=== PATIENT | male | born 1960 | race Caucasian/White ===

== ENCOUNTER 2018-09-25 16:17 | Observation (INO) | payer BC ==
[2018-09-25 16:36] VITALS: BMI 29.2
--- NOTE | 2018-09-25 16:37 | PDOC ---
History of Present Illness - General Chief Complaint: Head/Neck problem Stated Complaint: numbness Time Seen by Provider: 09/25/18 16:36 History Source: Patient Exam Limitations: No Limitations - History of Present Illness Initial Comments: 58 yo h/o HTN p/w L arm numbness and tingling x 1 hour. Patient was sitting down at home and relaxing and he noted sudden pain in the L upper chest. The pain is stabbing, intermittent, radiates to L hand, unrelated with activity, a/ w nausea but no vomiting. Denies shortness of breath, dizziness, focal weakness , palpitation, blurry vision, speech change. 09/25/18 18:06 Will obtain CBC, CMP, trend trops x 2, and CXR 09/25/18 19:38 Based on his presentation and history, will admit the patient to tele obs, trend trops and ECHo in the AM. Past History - Past Medical History Allergies/Adverse Reactions: Allergies Allergy/AdvReac Type Severity Reaction Status Date / Time No Known Allergies Allergy Verified 09/25/18 16:35 Home Medications: Ambulatory Orders NK [No Known Home Medication] 09/25/18 COPD: No - Suicide/Smoking/Psychosocial Hx Smoking History: Current every day smoker Information on smoking cessation initiated: No Hx Alcohol Use: No Drug/Substance Use Hx: No Review of Systems - Review of Systems Able to Perform ROS?: Yes Is the patient limited Tuvaluan proficient: No Constitutional: Yes: Diaphoresis. No: Chills, Fever HEENTM: No: Double Vision Respiratory: No: Cough, Shortness of Breath Cardiac (ROS): Yes: Chest Pain. No: Irregular Heart Rate, Palpitations ABD/GI: Yes: Diarrhea Neurological: Yes: Numbness, Tingling. No: Headache *Physical Exam - Vital Signs Last Vital Signs Temp Pulse Resp BP Pulse Ox 97.6 F 112 H 18 140/82 100 09/25/18 16:18 09/25/18 16:18 09/25/18 16:18 09/25/18 16:18 09/25/18 16:18 - Physical Exam General Appearance: No: Apparent Distress Respiratory/Chest: positive: Lungs Clear, Normal Breath Sounds Cardiovascular: positive: S1, S2, Tachycardia. negative: Edema, JVD, Murmur Gastrointestinal/Abdominal: positive: Normal Bowel Sounds. 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
--- NOTE | 2018-09-25 17:39 | PDOC ---
Attending Attestation - Resident Resident Name: Leo Bertrand - ED Attending Attestation I have performed the following: I have examined & evaluated the patient, The case was reviewed & discussed with the resident, I agree w/resident's findings & plan, Exceptions are as noted - HPI HPI: 09/25/18 17:39 58-year-old male who is resting at home when he developed sudden left-sided chest pain that radiated to his arm and had complaints of left arm tingling. He became diaphoretic and slightly nauseous at this time. This is not occurred before. - Physicial Exam PE: 09/25/18 17:40 well nourished, well-developed 58-year-old male presents with mild intermittent left-sided chest pain radiating down his arm. head ncat eyes angelica eomi neck no JVD, no bruits noted Lungs are clear to auscultation bilaterally CVS regular rate and rhythm S1, S2 no gallops, rubs, or murmurs appreciated. Abdomen is soft, nontender. Extremities there is no lower extremity edema. Skin is warm and dry. Neuro alert and oriented 3, ambulating with ease, no gross focal neural deficits, motor strength 5 out of 5 bilaterally in his extremities. Psychiatric appropriate - Medical Decision Making 09/25/18 17:[address] Dana Mcfadden. 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 EKG is normal sinus rhythm at 90 bpm, QTC normal at 446, no ST elevations, ST depressions 09/25/18 21:37 imp chest pain plan OBS telemetry
[2018-09-25] MEDS ORDERED: ASPIRIN 81 MG CHEWABLE TABLETS PO ONE (17:47)
[2018-09-25 18:03] LABS: BASO % 0.8 % (0-2.0); EOS % 0.7 % (0-4.5); HEMATOCRIT 43.1 % (35.4-49); HEMOGLOBIN 15.2 GM/dL (11.7-16.9); LYMPH % 12.5 % (8-40); MCH 31.7 pg (25.7-33.7); MCHC 35.2 g/dl (32.0-35.9); MEAN CELL VOLUME 90.1 fl (80-96); MEAN PLT VOLUME 7.5 fl (7.5-11.1); MONO % 3.6 % (3.8-10.2); NEUT % 82.4 % (42.8-82.8); PLATELET COUNT 203 K/MM3 (134-434); RBC 4.78 M/mm3 (4.00-5.60); RDW 13.1 % (11.9-15.9)
[2018-09-25] MEDS ORDERED: ASPIRIN 81 MG CHEWABLE TABLETS ONE ×2 (18:11)
[2018-09-25 18:17] LABS: INR 1.03 (0.83-1.09); PROTHROMBIN TIME (PATIENT) 12.2 SEC (9.7-13.0)
[2018-09-25 18:20] LABS: ACTIVATED PTT 33.9 SECONDS (25.2-36.5)
[2018-09-25 19:04] LABS: ALBUMIN 4.1 g/dl (3.4-5.0); ALK PHOS 66 U/L (45-117); ANION GAP 7 MMOL/L (8-16); BILIRUBIN,TOTAL 0.8 mg/dL (0.2-1); BLOOD UREA NITROGEN 13 mg/dL (7-18); CALCIUM 8.5 mg/dL (8.5-10.1); CHLORIDE 104 mmol/L (98-107); CO2 28 mmol/L (21-32); CREATININE 0.9 mg/dL (0.55-1.3); GLUCOSE,RANDOM 177 mg/dL (74-106); MAGNESIUM 1.9 mg/dL (1.8-2.4); POTASSIUM 3.7 mmol/L (3.5-5.1); SGOT/AST 18 U/L (15-37); SGPT/ALT 37 U/L (13-61); SODIUM 140 mmol/L (136-145); TOT PROT 7.4 g/dl (6.4-8.2)
--- NOTE | 2018-09-25 20:18 | HP ---
CHIEF COMPLAINT: chest pain PCP: Dr Dana Mcfadden MD HISTORY OF PRESENT ILLNESS: 58 year old male with no pmhx presented to [facility] ed with one day history of sweating , lightheadedness, and chest pain. symptoms started today at home with sweating beofre he went to [facility] where he developed chest pain , left upper chest 9/10 , asscoaited with numbness and tingling in his left arm, pain last 2- 3 min and he never had similar pain in the past . pt reports geeling fullness in his head , dizziness , also reports N with epigastric pain but no vomiting 10 min after his lunch where he ate mushroom. pt denies any sore throat , sinus congestion , sob , dyspnea on exertion, D/C, urinary symptoms or joint or back pain . pt reprots his BP was 170 systolic at home and had elevated BP reading in [facility] past but he was never start on meds . pt has strong family history for DM and his sugar was elevated in EM. ER course was notable for: (1)trop negative (2)EKG with no St, T wave changes (3)BP 140./84, BGM 177 Recent Travel: denies PAST MEDICAL HISTORY: none PAST SURGICAL HISTORY: none Social History: Smoking:denies Alcohol:socially Drugs: denies Family History:DM his Mother with B/l LE amputation Allergies No Known Allergies Allergy (Verified 09/25/18 16:35) HOME MEDICATIONS: Home Medications Medication Instructions Recorded NK [No Known Home Medication] 09/25/18 REVIEW OF SYSTEMS CONSTITUTIONAL: Absent: fever, chills, diaphoresis, generalized weakness, malaise, loss of appetite, weight change HEENT: Absent: rhinorrhea, nasal congestion, throat pain, throat swelling, difficulty swallowing, mouth swelling, ear pain, eye pain, visual changes CARDIOVASCULAR: Absent: chest pain, syncope, palpitations, irregular heart rate, lightheadedness , peripheral edema RESPIRATORY: Absent: cough, shortness of breath, dyspnea with exertion, orthopnea, wheezing, stridor, hemoptysis GASTROINTESTINAL: Absent: abdominal pain, abdominal distension, nausea, vomiting, diarrhea, constipation, melena, hematochezia GENITOURINARY: Absent: dysuria, frequency, urgency, hesitancy, hematuria, flank pain, genital pain MUSCULOSKELETAL: Absent: myalgia, arthralgia, joint swelling, back pain, neck pain SKIN: Absent: rash, itching, pallor HEMATOLOGIC/IMMUNOLOGIC: Absent: easy bleeding, easy bruising, lymphadenopathy, frequent infections ENDOCRINE: Absent: unexplained weight gain, unexplained weight loss, heat intolerance, cold intolerance NEUROLOGIC: Absent: headache, focal weakness or left arm paresthesias, dizziness, unsteady gait, seizure, mental status changes, bladder or bowel incontinence PSYCHIATRIC: Absent: anxiety, depression, suicidal or homicidal ideation, hallucinations. PHYSICAL EXAMINATION Vital Signs - 24 hr 09/25/18 16:18 Temperature 97.6 F Pulse Rate 112 H Respiratory 18 Rate Blood Pressure 140/82 O2 Sat by Pulse 100 Oximetry (%) GENERAL: AAOx3 in NAD HEAD: NC/AT EYES: EOMI, Conjunctiva clear, sclera anicteric ENT: moist mucous membrane NECK: Supple, no JVD LUNGS: CTA B/L, no crackles no wheezing no accessory muscle use. HEART: RRR, NSR, normal s1, s2, murmur no M/R/G ABDOMEN: Soft, ND, NT, +BS 4 Q, no CVA Tenderness LOWER EXTREMITIES: no edema, +2DP pulse, NEUROLOGICAL: No focal deficit. Normal speech. gait not observed. PSYCHIATRIC: Cooperative. Good eye contact. Appropriate mood and affect. SKIN: Warm, dry, Laboratory Results - last 24 hr 09/25/18 09/25/18 09/25/18 17:50 17:50 17:50 WBC 10.0 RBC 4.78 Hgb 15.2 Hct 43.1 MCV 90.1 MCH 31.7 MCHC 35.2 RDW 13.1 Plt Count 203 MPV 7.5 Absolute Neuts (auto) 8.2 H Neutrophils % 82.4 D Lymphocytes % 12.5 D Monocytes % 3.6 L Eosinophils % 0.7 D Basophils % 0.8 Nucleated RBC % 0 PT with INR 12.20 INR 1.03 PTT (Actin FS) 33.9 Sodium 140 Potassium 3.7 Chloride 104 Carbon Dioxide 28 Anion Gap 7 L BUN 13 Creatinine 0.9 Creat Clearance w eGFR 86.67 Random Glucose 177 H Calcium 8.5 Magnesium 1.9 Total Bilirubin 0.8 AST 18 ALT 37 Alkaline Phosphatase 66 Creatine Kinase 97 Troponin I < 0.02 Total Protein 7.4 Albumin 4.1 CBC, BMP 09/25/18 17:50 09/25/18 17:50 ASSESSMENT/PLAN: 58 year old male with no PMHx presented to the hospital with chest pain associated with left arm numbness admitted to obe tele to R.O ACS # chest pain R.O ACS * Trop I negative trend x2 * EKG with no st, t wave changes repeat with trop @ 12 and 6 am * Lipid panel , cholesterol , TSH * A1c , ASA 162 in ED and then 81 daily * might benefit for Stress test as out pt * Echo in Am * consider cardiology consult in AM * # Elevated BP * 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 , 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 * if continue to be elevated will start Norvasc 2.5 and increase to control BP # Elevated sugar * A1c , 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 - New Patient This patient is new to me today: Yes Date on this admission: 09/26/18 - Critical Care Critical Care patient: No
--- NOTE | 2018-09-25 20:19 | PN ---
Teaching Attending Note Name of Resident: Kurt Valentin ATTENDING PHYSICIAN STATEMENT I saw and evaluated the patient. I reviewed the resident's note and discussed the case with the resident. I agree with the resident's findings and plan as documented. SUBJECTIVE: Patient is a 58 year old man with PMH of HTN presents with left arm numbness and tingling for 1 hour. Patient was sitting down at home and relaxing and he noted sudden pain in the left upper chest. The pain is stabbing, intermittent, radiates to left hand, unrelated with activity, associated with nausea but no vomiting. Denies shortness of breath, dizziness, focal weakness, palpitation, blurry vision or speech change. OBJECTIVE: Alert Vital Signs Period Temp Pulse Resp BP Sys/Jarvis Pulse Ox Last 24 Hr 97.6 F 112 18 140/82 100 HEENT: No Jaundice, eye redness or discharge, PERRLA, EOMI. Normocephalic, atraumatic. External ears are normal and hearing is grossly intact. No nasal discharge. Neck: Supple, nontender. No palpable adenopathy or thyromegaly. No JVD Chest: Good effort. Clear to auscultation and percussion. Heart: Regular. No S3, rub or murmur Abdomen: Not distended, soft, nontender and no HSM. No rebound or guarding. Normal bowel sounds. Ext: Peripheral pulses intact. No leg edema. Skin: Warm and dry. No petechiae, rash or ecchymosis. Neuro: Alert. Oriented x3. CN 2-12 grossly intact. Sensation grossly intact in all four extremities and DTR are symmetric. Psych: Appropriate mood and affect. Good insight. Home Medications Medication Instructions Recorded NK [No Known Home Medication] 09/25/18 Abnormal Lab Results 09/25/18 09/25/18 17:50 17:50 Absolute Neuts (auto) 8.2 H Monocytes % 3.6 L Anion Gap 7 L Random Glucose 177 H ASSESSMENT AND PLAN: 1. Chest pain associated with left arm numbness/tingling - Patient has risk factors for CAD. Initial troponin is negative and EKG shows NSR with no significant ST-T wave changes. Now painfree. Got Aspirin 162 mg in the ER. CXR shows RLL atelectasis. Will admit to telemetry to rule out ACS, get ECHO, fasting lipids, TSH and consult cardiology. Has strong family history of DM - will get HbA1c and possibly commence diabetes treatment. 2. Hypertension - Unclear why he is not on medication. Will give HCTZ 12.5 mg q am and Amlodipine 2.5 mg q pm. Nonpharmacologic measures to control hypertension like weight loss, salt restriction and exercise discussed. 3. Overweight - Counseled on the risks associated with being overweight. Will provide patient all the necessary assistance, counseling and positive reinforcement to facilitate weight loss. 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 4. DVT prophylaxis - Lovenox 40 mg SQ q 24 hours. 5. Advance directives - Full code
[2018-09-25 20:51] LABS: INR 1.03 (0.83-1.09); PROTHROMBIN TIME (PATIENT) 12.1 SEC (9.7-13.0)
[2018-09-26 04:59] VITALS: TEMP 98.2
[2018-09-26 05:53] LABS: BASO % 0.6 % (0-2.0); EOS % 2.8 % (0-4.5); HEMATOCRIT 41.5 % (35.4-49); HEMOGLOBIN 14.3 GM/dL (11.7-16.9); LYMPH % 36.4 % (8-40); MCH 30.9 pg (25.7-33.7); MCHC 34.4 g/dl (32.0-35.9); MEAN CELL VOLUME 89.6 fl (80-96); MEAN PLT VOLUME 7.9 fl (7.5-11.1); MONO % 6.6 % (3.8-10.2); NEUT % 53.6 % (42.8-82.8); PLATELET COUNT 187 K/MM3 (134-434); RBC 4.63 M/mm3 (4.00-5.60); RDW 13.2 % (11.9-15.9); WHITE BLOOD COUNT 5.9 K/mm3 (4.0-10.0)
[2018-09-26 06:24] LABS: ALBUMIN 3.6 g/dl (3.4-5.0); ALK PHOS 53 U/L (45-117); ANION GAP 6 MMOL/L (8-16); BILIRUBIN,TOTAL 0.8 mg/dL (0.2-1); BLOOD UREA NITROGEN 12 mg/dL (7-18); CALCIUM 7.7 mg/dL (8.5-10.1); CHLORIDE 107 mmol/L (98-107); CHOLESTEROL 175 mg/dL (50-200); CO2 29 mmol/L (21-32); CREATININE 0.9 mg/dL (0.55-1.3); GLUCOSE,RANDOM 137 mg/dL (74-106); HDL CHOLESTEROL 41 mg/dL (40-60); PHOSPHOROUS 3.6 mg/dL (2.5-4.9); SGOT/AST 14 U/L (15-37); SGPT/ALT 29 U/L (13-61); SODIUM 142 mmol/L (136-145); TOT PROT 6.4 g/dl (6.4-8.2); TRIGLYCERIDES 77 mg/dL (0-150)
--- NOTE | 2018-09-26 09:55 | EKG ---
Test Reason : Blood Pressure : / mmHG Vent. Rate : 077 BPM Atrial Rate : 077 BPM P-R Int : 168 ms QRS Dur : 094 ms QT Int : 380 ms P-R-T Axes : 055 009 020 degrees QTc Int : 430 ms NORMAL SINUS RHYTHM NORMAL ECG WHEN COMPARED WITH ECG OF 25-SEP-2018 16:28, NO SIGNIFICANT CHANGE WAS FOUND Confirmed by FRANC WATTERS MD ([id number]) on 09/26/2018 9:55:20 AM Referred By: EVANGELIST SEGURA Confirmed By:FRANC WATTERS MD
--- NOTE | 2018-09-26 09:59 | EKG ---
Test Reason : Blood Pressure : / mmHG Vent. Rate : 098 BPM Atrial Rate : 098 BPM P-R Int : 170 ms QRS Dur : 104 ms QT Int : 350 ms P-R-T Axes : 055 015 060 degrees QTc Int : 446 ms NORMAL SINUS RHYTHM NORMAL ECG WHEN COMPARED WITH ECG OF 26-SEP-2016 08:05, NO SIGNIFICANT CHANGE WAS FOUND Confirmed by FRANC WATTERS MD ([id number]) on 09/26/2018 9:58:55 AM Referred By: Confirmed By:FRANC WATTERS MD
[2018-09-26] MEDS ORDERED: ENOXAPARIN NA (PORCINE) 40 MG/0.4 ML DISP.SYRIN SQ SCH (10:00)
[2018-09-26] MEDS ORDERED: ASPIRIN COATED 81 MG TABLET.EC PO SCH ×2 (10:00)
[2018-09-26] MEDS: RANITIDINE HCL 150 MG TABLET (FP) PO SCH ×2 (11:08→11:10)
[2018-09-26] MEDS ORDERED: RANITIDINE HCL 150 MG TABLET (FP) ONE (11:11)
--- NOTE | 2018-09-26 13:55 | PN ---
Teaching Attending Note Name of Resident: Britney Loo ATTENDING PHYSICIAN STATEMENT I saw and evaluated the patient. I reviewed the resident's note and discussed the case with the resident. I agree with the resident's findings and plan as documented. SUBJECTIVE: Patient is a 58yo male with no pmhx presented to ED. c/o having chest pain that lasted around 1/2 an hour. Patient denies having any chest pain at this time. No fever or chills, no shortness of breath. OBJECTIVE: Initial Vital Signs Temp Pulse Resp BP Pulse Ox 97.6 F 112 H 18 140/82 100 09/25/18 16:18 09/25/18 16:18 09/25/18 16:18 09/25/18 16:18 09/25/18 16:18 Vital Signs Temperature 98.2 F 09/26/18 04:58 Pulse Rate 74 09/26/18 04:58 Respiratory Rate 18 09/26/18 09:00 Blood Pressure 107/54 L 09/26/18 04:58 O2 Sat by Pulse Oximetry (%) 97 09/26/18 09:00 GENERAL: The patient is awake, alert, and fully oriented, in no acute distress. HEAD: Normal with no signs of trauma. EYES: PERRL, extraocular movements intact, sclera anicteric, conjunctiva clear. ENT: Ears normal, oropharynx clear without exudates, moist mucous membranes. NECK: Trachea midline, full range of motion, supple. LUNGS: Breath sounds equal, clear to auscultation bilaterally, no wheezes, no crackles, no accessory muscle use. HEART: Regular rate and rhythm, S1, S2 without murmur, rub or gallop. ABDOMEN: Soft, nontender, nondistended, normoactive bowel sounds, no guarding, no rebound, no hepatosplenomegaly, no masses. EXTREMITIES: 2+ pulses, warm, well-perfused, no edema. NEUROLOGICAL: Cranial nerves II through XII grossly intact. Normal speech. PSYCH: Normal mood, normal affect. SKIN: Warm, dry, normal turgor, no rashes or lesions noted WBC 5.9 K/mm3 (4.0-10.0) 09/26/18 05:00 RBC 4.63 M/mm3 (4.00-5.60) 09/26/18 05:00 Hgb 14.3 GM/dL (11.7-16.9) 09/26/18 05:00 Hct 41.5 % (35.4-49) 09/26/18 05:00 MCV 89.6 fl (80-96) 09/26/18 05:00 MCHC 34.4 g/dl (32.0-35.9) 09/26/18 05:00 RDW 13.2 % (11.9-15.9) 09/26/18 05:00 Plt Count 187 K/MM3 (134-434) 09/26/18 05:00 MPV 7.9 fl (7.5-11.1) 09/26/18 05:00 CMP Sodium 142 mmol/L (136-145) 09/26/18 05:00 Potassium 4.0 mmol/L (3.5-5.1) 09/26/18 05:00 Chloride 107 mmol/L (98-107) 09/26/18 05:00 Carbon Dioxide 29 mmol/L (21-32) 09/26/18 05:00 Anion Gap 6 MMOL/L (8-16) L 09/26/18 05:00 BUN 12 mg/dL (7-18) 09/26/18 05:00 Creatinine 0.9 mg/dL (0.55-1.3) 09/26/18 05:00 Creat Clearance w eGFR 86.67 (>60) 09/26/18 05:00 Random Glucose 137 mg/dL (74-106) H 09/26/18 05:00 Calcium 7.7 mg/dL (8.5-10.1) L 09/26/18 05:00 Total Bilirubin 0.8 mg/dL (0.2-1) 09/26/18 05:00 AST 14 U/L (15-37) L 09/26/18 05:00 ALT 29 U/L (13-61) 09/26/18 05:00 Alkaline Phosphatase 53 U/L (45-117) 09/26/18 05:00 Total Protein 6.4 g/dl (6.4-8.2) 09/26/18 05:00 Albumin 3.6 g/dl (3.4-5.0) 09/26/18 05:00 CARDIAC ENZYMES Creatine Kinase 97 U/L (26-308) 09/25/18 17:50 Troponin I < 0.02 ng/ml (0.00-0.05) 09/26/18 05:00 Current Medications Generic Name Dose Route Start Last Admin Trade Name Lauri PRN Reason Stop Dose Admin Aspirin 81 mg 09/26/18 10:00 09/26/18 11:07 Ecotrin - PO Not Given DAILY JUAN A Aspirin 81 mg 09/26/18 10:00 09/26/18 09:41 Ecotrin - PO 81 mg DAILY JUAN A Administration Ranitidine HCl 150 mg 09/25/18 21:45 09/26/18 11:10 Zantac - PO 150 mg DAILY JUAN A Administration Home Medications Medication Instructions Recorded Aspirin Coated [Ecotrin -] 81 mg PO DAILY #30 tablet.ec 09/26/18 Selected Entries 09/25/18 09/25/18 09/26/18 16:18 20:22 04:58 Blood Pressure 140/82 Blood Pressure 121/83 107/54 L [Left Arm] ECO: mild concentric left ventricular hypertrophy, LV function is normal, EJF of 55-60% ASSESSMENT AND PLAN: Patient is a 58 year old male with no PMHx presented to the hospital for having chest pain associated that lasted for 1/2 an hour. # Acute chest pain , ACS is ruled out by 3 sets of troponin negative, EKG with no st, t wave changes. follow with cardio and primary with close monitoring of blood pressure. # Elevated blood sugar Prediabetic range: lifestyle modifications, low fat/low sugar/low carb. diet. Follow with general technician within a week. and follow with cardio for stress test as an outpatient. weight loss is suggested. Patient can be discharged home on EC81mg ASA.
--- NOTE | 2018-09-26 13:57 | ECHO ---
Name: KAYODE, GLADYS Exam:Adult Echocardiogram Study Date: 09/26/2018 08:42 AM Age: 58 yrs Reason For Study: Chest pain Height: 67 in Weight: 187 lb BSA: 2.0 m2 MMode/2D Measurements & Calculations IVSd: 1.3 cm Ao root diam: 3.2 cm LVIDd: 4.0 cm LA dimension: 3.0 cm LVIDs: 2.9 cm LVPWd: 0.94 cm EDV(Teich): 70.5 ml LVOT diam: 2.0 cm ESV(Teich): 31.1 ml LAV (MOD-bp): 44.5 ml Doppler Measurements & Calculations MV E max landon: 64.5 cm/sec Ao V2 max: 160.2 cm/sec MV A max landon: 51.4 cm/sec Ao max P.3 mmHg MV E/A: 1.3 MV dec time: 0.12 sec BEBETO(V,D): 2.0 cm2 LV V1 max P.1 mmHg PA V2 max: 114.0 cm/sec LV V1 max: 101.4 cm/sec PA max P.2 mmHg Med Peak E' Landon: 8.3 cm/sec Med E/e': 7.8 Lat Peak E' Landon: 10.8 cm/sec Lat E/e': 6.0 Procedure A complete two-dimensional transthoracic echocardiogram was performed (2D, M-mode, Doppler and color flow Doppler). Left Ventricle The left ventricle is normal in size. There is mild concentric left ventricular hypertrophy. Left ashia tricular systolic function is normal. Ejection Fraction = 55-60%. No regional wall motion abnormalities noted. Right Ventricle The right ventricle is normal size. The right ventricular systolic function is normal. Atria The left atrial size is normal. LA volume index is 23 ml/m2. Right atrial size is normal. Mitral Valve The mitral valve is normal in structure and function. There is no mitral regurgitation noted. Tricuspid Valve The tricuspid valve is normal in structure and function. No tricuspid regurgitation. Aortic Valve The aortic valve is normal in structure and function. No aortic regurgitation is present. Pulmonic Valve The pulmonic valve is not well visualized. Great Vessels The aortic root is normal size. Pericardium/Pleura There is no pericardial effusion. Interpretation Summary The left ventricle is normal in size. There is mild concentric left ventricular hypertrophy. Left ventricular systolic function is normal. No regional wall motion abnormalities noted. Ejection Fraction = 55-60%. The right ventricular systolic function is normal. The left atrial size is normal. Right atrial size is normal. No significant valvular regurgitations Previous study is not available for comparison Nish Shah MD 09/26/2018 01:56 PM
--- NOTE | 2018-09-26 14:39 | CON.CARD ---
Consult Consult Specialty:: Cardiology - History of Present Illness Chief Complaint: chest pain History of Present Illness: 58 year old male with no pmhx presented to [facility] ed with one day history of sweating , abdominal pain, loose BM then and chest pain. Developed left upper chest point tenderness 9/10 , asscoaited with numbness and tingling in his left arm, There is no previous ho CAD or arrhythmia. EYAD negative and ECG was normal. - History Source History Provided By: Patient, Medical Record - Alcohol/Substance Use Hx Alcohol Use: No - Smoking History Smoking history: Current every day smoker Home Medications - Allergies Allergies/Adverse Reactions: Allergies Allergy/AdvReac Type Severity Reaction Status Date / Time No Known Allergies Allergy Verified 09/25/18 16:35 - Home Medications Home Medications: Ambulatory Orders Aspirin Coated [Ecotrin -] 81 mg PO DAILY #30 tablet.ec 09/26/18 Review of Systems - Review of Systems Constitutional: reports: No Symptoms Eyes: reports: No Symptoms HENT: reports: No Symptoms Neck: reports: No Symptoms Cardiovascular: reports: No Symptoms Respiratory: reports: No Symptoms Gastrointestinal: reports: Abdominal Pain, Bloating, Diarrhea Genitourinary: reports: No Symptoms Breasts: reports: No Symptoms Reported Musculoskeletal: reports: No Symptoms Integumentary: reports: No Symptoms Neurological: reports: No Symptoms Vital Signs: Vital Signs Temperature 98.2 F 09/26/18 04:58 Pulse Rate 74 09/26/18 04:58 Respiratory Rate 18 09/26/18 09:00 Blood Pressure 107/54 L 09/26/18 04:58 O2 Sat by Pulse Oximetry (%) 97 09/26/18 09:00 Constitutional: Yes: Well Nourished, No Distress, Calm Eyes: Yes: Conjunctiva Clear, EOM Intact HENT: Yes: Atraumatic, Normocephalic Neck: Yes: Supple, Trachea Midline Respiratory: Yes: Regular, CTA Bilaterally Gastrointestinal: Yes: Normal Bowel Sounds, Soft Cardiovascular: Yes: Regular Rate and Rhythm JVD: No Heart Sounds: Yes: S1, S2 (left sided repordcible point tenderness) Murmur: No: Systolic Murmur, Diastolic Murmur Edema: No Peripheral Pulses WNL: Yes - Other Data Labs, Other Data: CBC, BMP 09/26/18 05:00 09/26/18 05:00 INR, PTT INR 1.03 (0.83-1.09) 09/25/18 20:20 Troponin, BNP 09/25/18 09/25/18 09/26/18 17:50 21:51 05:00 Troponin I < 0.02 < 0.02 < 0.02 Troponin, BNP 09/25/18 09/25/18 09/26/18 17:50 21:51 05:00 Troponin I < 0.02 < 0.02 < 0.02 Imaging - Results EKG: Report Reviewed, Image Reviewed (NSR no ST T changes) Assessment/Plan 58 M with atypical and reproducible CP, diaphoresis and loose BM. Now improved. No electrocardiographic or laboratory evidence for ischemia or injury. Follow up as out patient is suggested. Will see prn
--- NOTE | 2018-09-26 15:09 | DS ---
Physical Exam: SUBJECTIVE: Patient seen and examinedat bedside- no acute events overnight patient states that he is no longer having chest pain; he denies any CP/SOB/N/V fevers or chills OBJECTIVE: Vital Signs Period Temp Pulse Resp BP Sys/Jarvis Pulse Ox Last 24 Hr 97.6 F-98.3 F 74-112 18-20 107-140/54-83 97-100 PHYSICAL EXAM GENERAL: The patient is awake, alert, and fully oriented, in no acute distress. EYES: PEERLA: EOMI; no scleral icterus NECK: no JVD: no lympadenopathy LUNGS: CTA B/L; no rales, rhnchi or wheezing HEART: Regular rate and rhythm, S1, S2 without murmur, rub or gallop. ABDOMEN: Soft, nontender, nondistended, normoactive bowel sounds, no guarding, no rebound, no hepatosplenomegaly, no masses. EXTREMITIES: 2+ pulses, warm, well-perfused, no edema. . PSYCH: Normal mood, normal affect. SKIN: Warm, dry, normal turgor, no rashes or lesions noted. LABS Laboratory Results - last 24 hr 09/25/18 09/25/18 09/25/18 17:50 17:50 17:50 WBC 10.0 RBC 4.78 Hgb 15.2 Hct 43.1 MCV 90.1 MCH 31.7 MCHC 35.2 RDW 13.1 Plt Count 203 MPV 7.5 Absolute Neuts (auto) 8.2 H Neutrophils % 82.4 D Lymphocytes % 12.5 D Monocytes % 3.6 L Eosinophils % 0.7 D Basophils % 0.8 Nucleated RBC % 0 PT with INR 12.20 INR 1.03 PTT (Actin FS) 33.9 Sodium 140 Potassium 3.7 Chloride 104 Carbon Dioxide 28 Anion Gap 7 L BUN 13 Creatinine 0.9 Creat Clearance w eGFR 86.67 Random Glucose 177 H Hemoglobin A1c % Calcium 8.5 Phosphorus Magnesium 1.9 Total Bilirubin 0.8 AST 18 ALT 37 Alkaline Phosphatase 66 Creatine Kinase 97 Troponin I < 0.02 Total Protein 7.4 Albumin 4.1 Triglycerides Cholesterol Total LDL Cholesterol HDL Cholesterol TSH 09/25/18 09/25/18 09/26/18 20:20 21:51 05:00 WBC 5.9 RBC 4.63 Hgb 14.3 Hct 41.5 MCV 89.6 MCH 30.9 MCHC 34.4 RDW 13.2 Plt Count 187 MPV 7.9 Absolute Neuts (auto) 3.2 Neutrophils % 53.6 D Lymphocytes % 36.4 D Monocytes % 6.6 D Eosinophils % 2.8 D Basophils % 0.6 Nucleated RBC % 0 PT with INR 12.10 INR 1.03 PTT (Actin FS) Sodium Potassium Chloride Carbon Dioxide Anion Gap BUN Creatinine Creat Clearance w eGFR Random Glucose Hemoglobin A1c % Calcium Phosphorus Magnesium Total Bilirubin AST ALT Alkaline Phosphatase Creatine Kinase Troponin I < 0.02 Total Protein Albumin Triglycerides Cholesterol Total LDL Cholesterol HDL Cholesterol TSH 09/26/18 09/26/18 09/26/18 05:00 05:00 05:51 WBC RBC Hgb Hct MCV MCH MCHC RDW Plt Count MPV Absolute Neuts (auto) Neutrophils % Lymphocytes % Monocytes % Eosinophils % Basophils % Nucleated RBC % PT with INR INR PTT (Actin FS) 34.8 Sodium 142 Potassium 4.0 Chloride 107 Carbon Dioxide 29 Anion Gap 6 L BUN 12 Creatinine 0.9 Creat Clearance w eGFR 86.67 Random Glucose 137 H Hemoglobin A1c % 6.1 Calcium 7.7 L Phosphorus 3.6 Magnesium 2.0 Total Bilirubin 0.8 AST 14 L ALT 29 Alkaline Phosphatase 53 Creatine Kinase Troponin I < 0.02 Total Protein 6.4 Albumin 3.6 Triglycerides 77 Cholesterol 175 Total LDL Cholesterol 126 H HDL Cholesterol 41 TSH 1.19 HOSPITAL COURSE: Date of Admission:09/25/18 58 year old male with no pmhx [facility] with one day history of sweating , lightheadedness, and chest pain. symptoms started today at home with sweating beofre he went to [facility] where he developed chest pain , left upper chest 9/10 , asscoaited with numbness and tingling in his left arm, pain last 2- 3 min and he never had similar pain in the past . pt reports geeling fullness in his head , dizziness , also reports N with epigastric pain but no vomiting 10 min after his lunch where he ate mushroom. when he got the ER, his vitals were wnl, no ekg changes, and his trops were negative X3. he was given ASA 325 once; echocardiogram was normal. he was seen by cardio who thought he can f/u as outaptient. his hba1c was 6.1- counseled to repeat in 3 months; his total choelsterol was 175 but LDL elevated at 120- ASCVD risk was 5 percent and no CAD /DM history we did not start on statin, stressed importance of diet and exercise and to repeat in 6 weeks with pcp. he wsa d/c with cardio follow up Date of Discharge: 09/26/18 Minutes to complete discharge: 39 Discharge Summary Reason For Visit: CHEST PAIN Current Active Problems Chest pain (Acute) Condition: Improved - Instructions Diet, Activity, Other Instructions: You came to the emergency room with complaints of chest pain. We did an EKG of your heart which was normal, we measured your cardiac enzymes and took an echocardiogram of your heart both of which were normal. You were also evaluated by a septic tank service technician. Your symptoms improved and you were stable to go home. Please resume all of your home medications in addition: -Please take Aspirin 81mg enteric coated daily We measured your HBA1c ( a measure of your sugar over 3 months) which was 6.1, in the prediabetic range- please follow a low carb/low sugar diet, low fat diet and have this number repeated in 3 months. We checked your lipid panel; your LDL cholesterol is mildly elevated ; please follow a low carb/ low sugar/low fat diet and increase your exercise routine- please have this rechecked in about 6-8 weeks Please follow up with your primary care physician within one week Please follow up with Dr. Trinidad, the septic tank service technician, within one week *if you begin to experience worsening chest pains, shortness of breath, nausea/ vomiting please return to the emergency room immediately Referrals: Zeferino Trinidad MD [Staff Physician] - 1 Week Dana Mcfadden [Other] Disposition: HOME - Home Medications Comprehensive Discharge Medication List: Ambulatory Orders Aspirin Coated [Ecotrin -] 81 mg PO DAILY #30 tablet.ec 09/26/18 Problem List - Problems (1) Chest pain Code(s): R07.9 - CHEST PAIN, UNSPECIFIED Qualifiers: Chest pain type: unspecified Qualified Code(s): R07.9 - Chest pain, unspecified This patient is new to me today: Yes Date on this admission: 09/26/18 Emergency Visit: Yes ED Registration Date: 09/25/18 Care time: The patient presented to the Emergency Department on the above date and was hospitalized for further evaluation of their emergent condition. Critical Care patient: No - Discharge Referral Referred to [facility] No
[2018-09-26 15:39] VITALS: BP 123/77; PULSE 78
== END 2018-09-26 15:52 | disposition home or self-care (01) ==
LOC: JER 16:17 → JERBED 20:24
PROVIDERS: ADMIT Internal Medicine; ATTEND Internal Medicine
DX: R07.9 Chest pain, unspecified (principal); I10 Essential (primary) hypertension; E66.3 Overweight; Z68.29 Body mass index [BMI] 29.0-29.9, adult; R73.9 Hyperglycemia, unspecified; R10.9 Unspecified abdominal pain; R11.0 Nausea
CPT/HCPCS: 36415; 71045-TC-FY; 80053; 80061; 82550; 83036; 83721; 83735; 84100; 84443; 84484; 85025; 85610; 85730; 93005; 93010; 93306-TC; 99285-25; G0378